=== PATIENT | male | born 1970 | race Two or more races ===

== ENCOUNTER 2017-08-29 18:11 | Emergency (ER) | payer SELFPAY ==
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
--- NOTE | 2017-08-29 19:32 | RADIOLOGY REPORT (SQ) ---
EXAM DESCRIPTION: HAND RIGHT 3 VIEWS; WRIST RIGHT 3 VIEWS COMPLETED DATE/TIME: 08/29/2017 7:21 pm REASON FOR STUDY: injury; injury with navicular view COMPARISON: None. EXAM PARAMETERS: NUMBER OF VIEWS: Three views right hand. Four views right wrist. TECHNIQUE: AP, lateral and oblique radiographic images acquired of the right hand. AP lateral obliq ue and scaphoid images acquired of the right wrist LIMITATIONS: None. FINDINGS: MINERALIZATION: Normal. BONES: No acute fracture or dislocation. No worrisome bone lesions. JOINTS: No effusions. SOFT TISSUES: No soft tissue swelling. No foreign body. OTHER: No other significant finding. IMPRESSION: NEGATIVE STUDY OF THE RIGHT HAND. Negative study of the right wrist. NO RADIOGRAPHIC E VIDENCE OF ACUTE INJURY. TECHNICAL DOCUMENTATION: JOB ID: [id number] [employer]- All Rights Reserved Reading location - IP/workstation name: [email or web address]
--- NOTE | 2017-08-29 19:32 | RADIOLOGY REPORT (SQ) ---
EXAM DESCRIPTION: HAND RIGHT 3 VIEWS; WRIST RIGHT 3 VIEWS COMPLETED DATE/TIME: 08/29/2017 7:21 pm REASON FOR STUDY: injury; injury with navicular view COMPARISON: None. EXAM PARAMETERS: NUMBER OF VIEWS: Three views right hand. Four views right wrist. TECHNIQUE: AP, lateral and oblique radiographic images acquired of the right hand. AP lateral obliq ue and scaphoid images acquired of the right wrist LIMITATIONS: None. FINDINGS: MINERALIZATION: Normal. BONES: No acute fracture or dislocation. No worrisome bone lesions. JOINTS: No effusions. SOFT TISSUES: No soft tissue swelling. No foreign body. OTHER: No other significant finding. IMPRESSION: NEGATIVE STUDY OF THE RIGHT HAND. Negative study of the right wrist. NO RADIOGRAPHIC E VIDENCE OF ACUTE INJURY. TECHNICAL DOCUMENTATION: JOB ID: [id number] 2012 [employer]- All Rights Reserved Reading location - IP/workstation name: [email or web address]
[2017-08-29 20:12] VITALS: BP 156/91
== END 2017-08-29 20:13 | disposition home or self-care (01) ==
LOC: ER 18:11
PROC: 2W3GX1Z Immobilization of Right Thumb using Splint (ICD-10-PCS; principal; 2017-08-29)
DX: S69.91XA Unspecified injury of right wrist, hand and finger(s), initial encounter (principal); M79.89 Other specified soft tissue disorders; W19.XXXA Unspecified fall, initial encounter; F17.200 Nicotine dependence, unspecified, uncomplicated; J45.909 Unspecified asthma, uncomplicated
CPT/HCPCS: 99283

== ENCOUNTER 2018-03-06 22:47 | Emergency (ER) | payer SELFPAY ==
[2018-03-07] MEDS ORDERED: CYCLOBENZAPRINE HCL 10 MG TABLET PO ONE (00:15)
[2018-03-07] MEDS ORDERED: LIDOCAINE 5% (700 MG) TRANSDERMAL ADH..PATCH TP ONE (00:15)
[2018-03-07] MEDS ORDERED: DEXAMETHASONE SOD PHOS INJ 10 MG/1 ML VIAL IM ONE (00:15)
[2018-03-07] MEDS ORDERED: OXYCODONE-ACETAMINOPHEN 5-325 MG TABLET PO ONE (00:15)
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
[2018-03-07 00:33] VITALS: BP 145/69
== END 2018-03-07 00:33 | disposition home or self-care (01) ==
LOC: ER 22:47
DX: G89.29 Other chronic pain (principal); M54.5 Low back pain; Z88.6 Allergy status to analgesic agent
CPT/HCPCS: 99283; 96372; J1100